=== PATIENT | female | born 1970 | race Caucasian/White ===

== ENCOUNTER → 2020-06-29 | Outpatient (CLI) | payer BC ==
--- NOTE | 2020-06-29 11:07 | RAD ---
EXAM: Chest, 2 views. HISTORY: Abnormal chest x-ray. Covid 19. Dyspnea. COMPARISON: None. FINDINGS: 2 views of the chest are obtained. There is no consolidation, pleural effusion or pneumotho rax. The heart is normal in size. There is mild right infrahilar opacity likely due to atelectasis or interstitial infiltrate. IMPRESSION: Suspected right infrahilar atelectasis or interstitial infiltrate. There is no consolidat ed pneumonia. Electronically signed by: Tisha Meyers MD (06/29/2020 11:04 AM) [id number]
== END ==
LOC: RAD 10:48
PROVIDERS: ATTEND Family Medicine
DX: R06.09 Other forms of dyspnea (principal); Z86.16 Personal history of COVID-19
CPT/HCPCS: 71046